=== PATIENT | male | born 1965 | race Caucasian/White ===

== ENCOUNTER → 2016-11-06 | Day surgery (SDC) | payer OTHER ==
[~2016-11-06] VITALS: Ht 160 cm; Wt 108.5 kg
[~2016-11-06] MED LIST: *RESP: ALBUTEROL 2.5 MG/3 ML NEB (PRN) PERIprocedural Use ONLY NEB ONE; *morphine SULFATE 8 MG/ML PERIprocedure ONLY ONE; ACETAMINOPHEN 1000 MG/100 ML VIAL IV SCH; BUPIVACAINE/EPINEPHRINE 0.5% 50 ML VIAL INFIL ONE; CHLORHEXIDINE GLUCONATE 2 % 1 PACK (2 CLOTHS) TOPICAL PRN; DO NOT ADM ANY ANTICOAGULANT DRUGS PRN; FAMOTIDINE 20 MG/2 ML VIAL ONE; INSULIN HUMAN REGULAR 1,000 UNITS/10 ML VIAL SQ PRN; KETOROLAC TROMETHAMINE 30 MG/ML (IVP) VIAL IV PUSH ONE; KETOROLAC TROMETHAMINE 60 MG/2 ML (IM) VIAL IM ONE; LACTATED RINGER'S 1000 ML INJ 1,000 ML IV ONE; LACTATED RINGER'S 1000 ML IV PRN; METOPROLOL TARTRATE 25 MG TAB PO PRN; MIDAZOLAM HCL 2 MG/2 ML VIAL ONE; MORPHINE SULFATE 4 MG/ML INJ IV PRN; NEOSTIGMINE 3 MG/3 ML SYR IV ONE; ONDANSETRON HCL 4 MG/2 ML VIAL IV PRN; ONDANSETRON HCL 4 MG/2 ML VIAL IV PUSH ONE; POVIDONE IODINE 5% (ANTISEPSIS KIT) 4 APPLICATIONS EACH NARE PRN; PROPOFOL 200 MG/20 ML AMP IV ONE; SODIUM CHLOR 0.9% 250 ML INJ 250 ML ONE; SODIUM CHLORID 0.9% 500 ML IV PRN; VANCOMYCIN 500 MG VIAL ONE; fentaNYL CITRATE 250 MCG/5 ML AMP ONE; oxyCODONE/ACETAMINOPHEN 5 MG/325 MG TAB PO PRN
[2016-11-06 07:32] VITALS: BP 152/94; PULSE 52; RESP 16; TEMP 98.1; O2SAT 98
--- NOTE | 2016-11-06 10:38 | PD.OP ---
cc: Allen Cast MD Operative Report Date of Surgery: Nov 06, 2016 Preoperative Diagnosis: Chronic cholecystitis and cholelithiasis Postoperative Diagnosis: Chronic cholecystitis and cholelithiasis Procedure: Laparoscopic cholecystectomy Anesthesia: Gen. endotracheal Surgeon: Allen Cast Drive In Teller(s): KIKE Duffy Operation and Findings: Operative findings: The patient was seen to have a very thickened gallbladder with a large stone within its lumen. The bladder was investigated and a large amount of eschar directly near the cystic duct. The cystic duct and common bile duct were seen to be of normal caliber. No other abnormalities were noted other than a fatty liver. Operative procedure: The patient was brought to the operating room and after satisfactory general endotracheal anesthesia was obtained, the abdomen was prepped and draped in usual sterile fashion. The skin was anesthetized just above the umbilicus with 0.5% Marcaine with epinephrine. A skin incision was made and a 5 mm trocar was inserted under direct visualization into the peritoneal cavity. The abdomen was then distended to 15 mmHg using carbon dioxide after which the camera was reinserted and visceral injury was inspected for with none being identified. Under direct visualization a 5 port and a 12 port were placed in the upper abdomen. The fundus of the gallbladder was identified grasped and retracted superiorly over the right lobe of the liver. Adhesions were taken down bluntly with the Harmonic scalpel used for hemostasis. The dissection was carried out to expose the Prescott's pouch area which was then grasped and retracted inferiorly and laterally, placing tension on the hepatoduodenal ligament. The cystic artery was dissected free and identified as it was quite superior. It was divided with a Harmonic scalpel. Extensive dissection was undertaken with blunt dissection as well as hydrodissection to reveal the cystic duct. The gallbladder was partially taken down from the liver bed and this portion of the procedure using the harmonic scalpel. The cystic duct was then controlled hemoclips proximally and divided near central the gallbladder using the Harmonic scalpel. Harmonic was then used to completely dissected gallbladder free from the liver bed. It was placed within an Endo Catch bag and brought through the upper midline incision which was necessarily enlarged to allow egress of the gallbladder and the bag due to the large stone. The gallbladder was passed for permanent pathology. The trochar was reinserted and the liver bed inspected and found to be hemostatic. The cystic duct cystic artery stumps were seen to be intact with no leakage of bile or blood. The carbon dioxide was vented as completely as possible to the atmosphere, after which the ports were removed. The 12 mm fascial defect was closed with a single 's 0 Vicryl suture. The skin defects were then closed with interrupted 4-0 PDS subcutaneous stitches. Steri-Strips were applied and the patient was then awakened and taken from the operating room, in satisfactory condition, having tolerated the procedure without problem. Estimated blood loss was less than 10 mL's. The instrument, sponge, needle counts were reported as being correct 2 at the end of the procedure. Allen Cast MD Nov 06, 2016 10:38
[2016-11-06 12:00] VITALS: BP 134/79; PULSE 63; RESP 20; TEMP 97.5; O2SAT 96
== END | disposition home or self-care (01) ==
LOC: HSDC 07:10
PROVIDERS: ATTEND Surgery
DX: K80.10 Calculus of gallbladder with chronic cholecystitis without obstruction (principal); I10 Essential (primary) hypertension; G47.30 Sleep apnea, unspecified; R35.0 Frequency of micturition; J06.9 Acute upper respiratory infection, unspecified; R00.1 Bradycardia, unspecified; R01.1 Cardiac murmur, unspecified; E78.5 Hyperlipidemia, unspecified; K76.0 Fatty (change of) liver, not elsewhere classified; K44.9 Diaphragmatic hernia without obstruction or gangrene
CPT/HCPCS: 00790; 47562; 88304; 94664; J0131; J1885; J2250; J2270; J2405; J2710; J3010; J3370; J7050; J7120; J7613